=== PATIENT | male | born 1950 | race Caucasian/White ===

== ENCOUNTER 2017-04-09 16:01 | Emergency (ER) | payer BC, OTHER ==
[~2017-04-09] VITALS: Ht 170.2 cm; Wt 76.0 kg
[~2017-04-09 16:01] MED LIST: ASPI81TA28 PO; ATOR10TA88 PO; LISI-461 PO; MULT-220 PO; NEOMYCIN PO; NRV5 PO; ONDA4TAB4 PO; OXYC1TAB3 PO
[2017-04-09 16:05] VITALS: TEMP 36.8; Ht 170.2 cm; Wt 76.0 kg
[2017-04-09] MEDS ORDERED: XYLOCAINE 1%/SOD BICARB 20 ML VIAL INFIL ONE (16:06)
--- NOTE | 2017-04-09 16:13 | EMERGENCY ROOM VISIT NOTE ---
History Report prepared by Giovanny: Santhosh Clay Under the Supervision of: Dr. Carlo Beltran M.D. First contact with patient: 16:04 Chief Complaint: LACERATION/CUT (SUT/DERMABOND) Stated Complaint: CUT ON LEFT ARM History of Present Illness The patient is a 66 year old male who presents to the Emergency Room with complaints of a sudden laceration on his left arm occurring prior to arrival. The patient states that he was unloading stuff, and some broken glass cut him. The patient states that he is currently on aspirin, and he states that he is up to date with his tetanus shot. Source of History: patient Onset: prior to arrival Position: arm (left) Quality: other (laceration) Timing: other (sudden) Review of Systems See HPI for pertinent positives & negatives. A total of 6 systems reviewed and were otherwise negative. Family History Heart disease Social History Smoking Status: Never Smoker Drug Use: none Marital Status: Housing Status: lives with family Occupation Status: unemployed Current/Historical Medications Scheduled Aspirin (Aspirin Ec), 81 MG PO HS Atorvastatin (Lipitor), 10 MG PO HS Lisinopril (Lisinopril), 5 MG PO HS Multiple Vitamins W/ Minerals (Multi For Him), 1 TAB PO HS Allergies Coded Allergies: No Known Allergies (Unverified , 04/09/17) Physical Exam Vital Signs Date Time Temp Pulse Resp B/P (MAP) Pulse Ox O2 Delivery O2 Flow Rate FiO2 04/09/17 17:00 72 20 137/76 99 04/09/17 16:05 36.8 122 18 169/85 96 Room Air Physical Exam GENERAL: Patient is well appearing and in no acute distress. HEENT: No acute trauma, normocephalic atraumatic, mucous membranes moist, no nasal congestion, no scleral icterus. NECK: No stridor, no adenopathy, no meningismus, trachea is midline. LUNGS: No dyspnea. Clear to auscultation and equal bilaterally. No wheeze, no rhonchi. HEART: Regular rate and rhythm. No murmurs, rubs, gallops appreciated. EXTREMITIES: 3cm laceration over the distal left ulnar forearm deep to muscle. Initial evaluation had no evidence of vascular nor nerve injury. Full range of motion and strength in all digits of the left hand with excellent capillary refill. Normal sensation. Normal motion all extremities, no cyanosis, no edema. NEUROLOGIC: Alert and oriented, no acute motor or sensory deficits, no focal weakness, cranial nerves grossly intact. SKIN: No rash, no jaundice, no diaphoresis. Medical Decision & Procedures ER Provider Diagnostic Interpretation: Radiology results and stated below per my review and radiologist interpretation: LEFT FOREARM 2 VIEWS ROUTINE CLINICAL HISTORY: left forearm laceration on glass trauma COMPARISON: None. DISCUSSION: The bones and joint spaces appear intact. There is no evidence of fracture, dislocation or bony disease. Mild nonspecific soft tissue edema. IMPRESSION: No acute bony abnormality. Mild soft tissue edematous change The above report was generated using voice recognition software. It may contain grammatical, syntax or spelling errors. Electronically signed by: Margarito Daily M.D. 04/09/2017 4:24 PM Dictated Date/Time: 04/09/2017 4:23 PM ED Course 1604: The patient was evaluated in room B1. A complete history and physical exam was performed. 1606: Buffered Lidocaine 1% Inj 20ml INFIL 1700: Reevaluated the patient. Discussed results and discharge instructions: He verbalized understanding and agreement. He is going to follow up with his PCP on 04/20. The patient is ready for discharge. Medical Decision Pleasant 66 yr old male who cut left forearm on glass. Xray without foreign body. No evidence of arterial nor nerve compromise and he has excellent strength in hand. Tetanus UTD per him and . Sutured by Justen AKERS. Patient feeling well in no distress. Clearly fair amount of blood loss though vitals good once calmed down and he is without lightheadedness nor issues with orthostatic symptoms. PCP appointment next week. Medication Reconcilliation Current Medication List: was personally reviewed by me Blood Pressure Screening Patient's blood pressure: Elevated blood pressure Blood pressure disposition: Elevated BP felt to be situational I did discuss his BP elevation though likely situation with him and that follow up appt on reasonable time to have this rechecked. Impression Primary Impression: Laceration of left forearm Scribe Attestation The scribe's documentation has been prepared under my direction and personally reviewed by me in its entirety. I confirm that the note above accurately reflects all work, treatment, procedures, and medical decision making performed by me. Departure Information Dispostion Home / Self-Care Referrals Andrey Merino M.D. (PCP) Forms HOME CARE DOCUMENTATION FORM, IMPORTANT VISIT INFORMATION Patient Instructions My [facility] Additional Instructions Keep wound clean and dry. Do not allow any crusting or dried blood to accumulate on sutures. If this occurs, use a 1:1 solution of hydrogen peroxide/ water on a Q-tip to clean the wound. Use an antibiotic ointment for 3-4 days, then let wound dry. Suture removal in 12-14 days. Return sooner for any signs of infection (increasing redness, swelling, drainage). Ice and elevate for swelling and pain. Tylenol 1000 mg every 6 hrs as needed for pain. If bleeding soaks through the dressing, suggest applying an Peng wrap for additional pressure. Return to the emergency department for persistent bleeding through the dressing.
--- NOTE | 2017-04-09 16:25 | DIAGNOSTIC IMAGING REPORT ---
LEFT FOREARM 2 VIEWS ROUTINE CLINICAL HISTORY: left forearm laceration on glass trauma COMPARISON: None. DISCUSSION: The bones and joint spaces appear intact. There is no evidence of fracture, dislocation or bony disease. Mild nonspecific soft tissue edema. IMPRESSION: No acute bony abnormality. Mild soft tissue edematous change The above report was generated using voice recognition software. It may contain grammatical, syntax or spelling errors. Electronically signed by: Margarito Daily M.D. 04/09/2017 4:24 PM Dictated Date/Time: 04/09/2017 4:23 PM
[2017-04-09] MEDS ORDERED: LSN5 PO (16:41)
--- NOTE | 2017-04-09 16:54 | EMERGENCY ROOM VISIT NOTE ---
ED Visit Note 66-year-old male who I was asked by Dr. Beltran, ED attending physician, to perform a left forearm laceration repair. The [place], and had significant bleeding from the wound. Please see Dr. Beltran's dictation for further treatment and final disposition. PROCEDURE NOTE: Examination of the left volar and ulnar forearm region shows an actively bleeding 2.5 cm laceration. The patient provided verbal consent for laceration repair under local anesthesia. Using buffered 1% lidocaine without epinephrine, good local anesthesia was administered. Sterile field was likely created. Several venous lacerations were noted with significant bleeding from the wound. Using 4-0 Vicryl simple interrupted sutures 4, good hemostasis was achieved. The wound was then thoroughly irrigated with normal saline. Exploration of the wound does not show any additional glass debris or other foreign bodies. The wound itself is actually rather shallow, and does not extend into the underlying subcutaneous space. The wound was then approximated using 4-0 nylon simple interrupted sutures. A bacitracin dressing was applied.
[2017-04-09 17:00] VITALS: BP 137/76; PULSE 72; O2SAT 99
== END 2017-04-09 17:00 | disposition home or self-care (01) ==
LOC: C.EDB 16:02
DX: S51.812A Laceration without foreign body of left forearm, initial encounter (principal); W25.XXXA Contact with sharp glass, initial encounter; Z82.49 Family history of ischemic heart disease and other diseases of the circulatory system

== ENCOUNTER 2017-08-07 02:50 | Emergency (ER) | payer BC ==
[~2017-08-07] VITALS: Ht 167.6 cm; Wt 75.9 kg
[~2017-08-07 02:50] MED LIST changes: +ATOR10TA82 PO; -ATOR10TA88 PO; -LISI-461 PO; +LSN5 PO; -NEOMYCIN PO; -NRV5 PO; -ONDA4TAB4 PO; -OXYC1TAB3 PO
[2017-08-07 02:59] VITALS: TEMP 36.5; Ht 167.6 cm; Wt 75.9 kg
[2017-08-07] MEDS ORDERED: KETOROLAC TROMETHAMINE 30 MG/ML VIAL IV STA (03:44)
[2017-08-07] MEDS ORDERED: ASPI1TAB48 PO (03:50)
[2017-08-07 04:12] LABS: BASO % 0.1 %; BASO ABS # 0.01 K/uL (0-0.2); COMPLETE YES; EOS % 0.1 %; HEMATOCRIT 44.3 % (42-52); IG% 0.1 %; LYMPH % 23.3 %; LYMPH ABS # 1.62 K/uL (1.2-3.4); MEAN CELL VOLUME 91.7 fL (80-100); MEAN CORPUSCULAR HEMOGLOBIN 31.3 pg (25-34); MEAN CORPUSCULAR HGB CONC 34.1 g/dl (32-36); MEAN PLATELET VOLUME 9.5 fL (7.4-10.4); MONO % 7.5 %; NEUT % 68.9 %; PLATELET COUNT 153 K/uL (130-400); RED BLOOD COUNT 4.83 M/uL (4.7-6.1); WHITE BLOOD COUNT 6.95 K/uL (4.8-10.8)
[2017-08-07 04:18] LABS: INR 0.9 (0.9-1.1); PROTHROMBIN TIME (PATIENT) 10.1 SECONDS (9.0-12.0)
[2017-08-07 04:30] LABS: ALT/SGPT 36 U/L (12-78); AST/SGOT 26 U/L (15-37); BLOOD UREA NITROGEN 16 mg/dl (7-18); BUN/CREATININE RATIO 14.5 (10-20); CALCIUM 8.2 mg/dl (8.5-10.1); CARBON DIOXIDE 24 mmol/L (21-32); CHLORIDE 106 mmol/L (98-107); CREATININE 1.13 mg/dl (0.60-1.40); GLUCOSE 99 mg/dl (70-99); MAGNESIUM 2.2 mg/dl (1.8-2.4); POTASSIUM 3.7 mmol/L (3.5-5.1); SODIUM 137 mmol/L (136-145)
[2017-08-07 04:35] LABS: ALKALINE PHOSPHATASE 99 U/L (45-117)
--- NOTE | 2017-08-07 05:14 | EMERGENCY ROOM VISIT NOTE ---
History Report prepared by Giovanny: Anabella Shankar Under the Supervision of: Dr. Yumiko Howard D.O. First contact with patient: 03:21 Chief Complaint: CHEST PAIN Stated Complaint: CHEST PAIN, SWEATS, BODY FEELS SORE Nursing Triage Summary: see triage note . History of Present Illness The patient is a 66 year old male who presents to the Emergency Room with complaints of intermittent chest pain starting 1 week ago. He describes the pain as sore. The pain lasts for a few seconds at a time and happens mostly when he is lying down. The pain is not very severe. It has happened around 5 times. He is also having aching in his shoulders and arms. This does not change with movement. He notes that he did move some plastic tables and chairs, but does not think that this is related. He is having difficulty sleeping because of the shoulder pain, especially tonight. He had tried taking Tylenol which helped slightly. Tonight he had some diaphoresis which resolved. He reports some SOB and a small amount of soreness in his legs. No change in any symptoms with exertion, exertion does not bring out chest pain. He has been feeling lightheaded when standing up, lasts only couple seconds and then resolves. He denies any fever, nausea, vomiting, cough, cold symptoms, abdominal pain, change in bowel movements, urinary symptoms, or leg swelling. He denies any history of heart problems. His father passed at age 50 from a heart attack. His mother also had a history of heart attack. He has a history of kidney stones, but no history of kidney failure. He notes that his grandchildren have had colds recently. Source of History: patient Onset: 1 week ago Position: chest Quality: other (soreness) Timing: intermittent Associated Symptoms: + diaphoresis, + SOB, No fevers, No cough, No nausea, No vomiting, No abdominal pain, No urinary symptoms Note: Pt reports shoulder and arm aching, lightheadedness. Pt denies change in bowel movement, leg swelling. Review of Systems See HPI for pertinent positives & negatives. A total of 10 systems reviewed and were otherwise negative. Past Medical & Surgical Medical Problems: (1) Hypertension Family History Heart disease Social History Smoking Status: Never Smoker Drug Use: none Marital Status: Housing Status: lives with family Occupation Status: retired Current/Historical Medications Scheduled Aspirin (Aspirin Low Dose), 81 MG PO DAILY Atorvastatin (Lipitor), 10 MG PO HS Lisinopril (Lisinopril), 10 MG PO HS Multiple Vitamins W/ Minerals (Multi For Him), 1 TAB PO HS Allergies Coded Allergies: No Known Allergies (Unverified , 08/07/17) Physical Exam Vital Signs Date Time Temp Pulse Resp B/P (MAP) Pulse Ox O2 Delivery O2 Flow Rate FiO2 08/07/17 05:23 70 18 140/88 95 08/07/17 04:24 66 20 138/92 96 Room Air 08/07/17 03:15 71 08/07/17 03:14 98 Room Air 08/07/17 03:14 70 08/07/17 02:59 36.5 76 20 153/100 96 Room Air Physical Exam GENERAL: alert, well appearing, well nourished, no distress, non-toxic EYE EXAM: normal conjunctiva, PERRL and EOM's grossly intact OROPHARYNX: no exudate, no erythema, lips, buccal mucosa, and tongue normal and mucous membranes are moist NECK: supple, no nuchal rigidity, no adenopathy, non-tender CHEST: No reproducible chest wall tenderness. LUNGS: Clear to auscultation. Normal chest wall mechanics HEART: no murmurs, S1 normal and S2 normal ABDOMEN: abdomen soft, non-tender, normo-active bowel sounds, no masses, no rebound or guarding. BACK: Back is symmetrical on inspection and there is no deformity, no midline tenderness, no CVA tenderness. SKIN: no rashes and no bruising UPPER EXTREMITIES: Reproducible tenderness to the bilateral proximal upper extremities. No deformity. Full ROM. Normal sensory. LOWER EXTREMITIES: No pitting edema. NEURO EXAM: Normal sensorium, cranial nerves II-XII grossly intact, normal speech, no gross weakness of arms, no gross weakness of legs. Medical Decision & Procedures ER Provider Diagnostic Interpretation: X-ray: I interpreted the following studies. Chest: A two view study of the chest was reviewed and was negative for cardiomegaly, focal infiltrate, effusion , or wide mediastinum. Laboratory Results 08/07/17 03:10 Red Blood Count 4.83, Mean Corpuscular Volume 91.7, Mean Corpuscular Hemoglobin 31.3, Mean Corpuscular Hemoglobin Concent 34.1, Mean Platelet Volume 9.5, Neutrophils (%) (Auto) 68.9, Lymphocytes (%) (Auto) 23.3, Monocytes (%) (Auto) 7.5, Eosinophils (%) (Auto) 0.1, Basophils (%) (Auto) 0.1, Neutrophils # (Auto) 4.78, Lymphocytes # (Auto) 1.62, Monocytes # (Auto) 0.52, Eosinophils # (Auto) 0.01, Basophils # (Auto) 0.01 08/07/17 03:10 Test 08/07/17 03:10 White Blood Count 6.95 K/uL (4.8-10.8) Red Blood Count 4.83 M/uL (4.7-6.1) Hemoglobin 15.1 g/dL (14.0-18.0) Hematocrit 44.3 % (42-52) Mean Corpuscular Volume 91.7 fL (80-100) Mean Corpuscular Hemoglobin 31.3 pg (25-34) Mean Corpuscular Hemoglobin Concent 34.1 g/dl (32-36) Platelet Count 153 K/uL (130-400) Mean Platelet Volume 9.5 fL (7.4-10.4) Neutrophils (%) (Auto) 68.9 % Lymphocytes (%) (Auto) 23.3 % Monocytes (%) (Auto) 7.5 % Eosinophils (%) (Auto) 0.1 % Basophils (%) (Auto) 0.1 % Neutrophils # (Auto) 4.78 K/uL (1.4-6.5) Lymphocytes # (Auto) 1.62 K/uL (1.2-3.4) Monocytes # (Auto) 0.52 K/uL (0.11-0.59) Eosinophils # (Auto) 0.01 K/uL (0-0.5) Basophils # (Auto) 0.01 K/uL (0-0.2) RDW Standard Deviation 43.3 fL (36.4-46.3) RDW Coefficient of Variation 12.9 % (11.5-14.5) Immature Granulocyte % (Auto) 0.1 % Immature Granulocyte # (Auto) 0.01 K/uL (0.00-0.02) Prothrombin Time 10.1 SECONDS (9.0-12.0) Prothromb Time International Ratio 0.9 (0.9-1.1) D-Dimer 240 ug/L FEU (0-500) Anion Gap 7.0 mmol/L (3-11) Est Creatinine Clear Calc Drug Dose 56.4 ml/min Estimated GFR () 77.0 Estimated GFR (Non- 66.4 BUN/Creatinine Ratio 14.5 (10-20) Calcium Level 8.2 mg/dl (8.5-10.1) Magnesium Level 2.2 mg/dl (1.8-2.4) Total Bilirubin 0.6 mg/dl (0.2-1) Aspartate Amino Transf (AST/SGOT) 26 U/L (15-37) Alanine Aminotransferase (ALT/SGPT) 36 U/L (12-78) Alkaline Phosphatase 99 U/L (45-117) Troponin I < 0.015 ng/ml (0-0.045) Pro-B-Type Natriuretic Peptide 24 pg/ml (0-900) Total Protein 7.3 gm/dl (6.4-8.2) Albumin 3.7 gm/dl (3.4-5.0) Globulin 3.6 gm/dl (2.5-4.0) Albumin/Globulin Ratio 1.0 (0.9-2) Laboratory results per my review. Medications Administered Medications (Trade) Dose Ordered Sig/Devaughn Route Start Time Stop Time Status Last Admin Dose Admin Ketorolac Tromethamine (Toradol Inj) 15 mg NOW STAT IV 08/07/17 03:44 08/07/17 03:46 DC 08/07/17 03:53 15 MG ECG Indication: chest pain Rate (beats per minute): 73 Rhythm: sinus rhythm Findings: no acute ischemic change, no ectopy, other (normal axis, normal intervals) ED Course 0323: The patient was evaluated in room A2. A complete history and physical exam was performed. 0344: Toradol Inj 15 mg IV. 0457: Upon reevaluation, the patient is feeling better after Toradol. I discussed the findings and the treatment plan with the patient. He will follow up with his PCP and I discussed a possible cardiology evaluation. He verbalizes agreement and understanding. He was discharged home. Medical Decision Differential diagnoses includes but is not limited to acute coronary syndrome, myocardial infarction, pericarditis, pulmonary embolus, aortic dissection, pneumonia, pneumothorax, musculoskeletal, shingles, esophageal. Patient well-appearing here despite complaints, vital signs stable. Patient with bilateral proximal upper extremity pain reproducible with palpation, no bony tenderness/deformity/effusions. No chest pain or trouble breathing during my evaluation and during stay in the emergency room. Labs and imaging reassuring. Unclear if very brief episodes of intermittent chest pain related to upper externally findings. I do not suspect dissection. Patient with no paresthesias or weakness. Discussed with patient acidity in diet and reflux, possible patient with component of reflux and esophageal spasm. Patient's pain improved with Toradol. Labs and imaging reassuring. Given and written chest pain for greater than 1 day and negative troponin as well as very atypical, do not suspect ACS. Heart score 3. Discussed with patient follow-up with family doctor in possible need for cardiology evaluation as a precaution given that there is a family history of coronary artery disease. Patient's EKG here reassuring. Chest with patient symptoms to watch and return for, limiting heavy lifting and stiffness activity until he is feeling better, he was agreeable. Patient has been exposed to sick contacts and grandchildren recently , discussed with him chills tonight may be first indication of evolving illness. Discussed close monitoring. Discussed also could be related to pain or anxiety. No evidence of infectious etiology here tonight. Patient verbalized understanding of all results, possible differential diagnosis, need for close follow-up, was agreeable with plan. Medication Reconcilliation Current Medication List: was personally reviewed by me Blood Pressure Screening Patient's blood pressure: Elevated blood pressure Blood pressure disposition: Elevated BP felt to be situational Impression Primary Impression: Shoulder pain, bilateral Additional Impression: Chest pain Scribe Attestation The scribe's documentation has been prepared under my direction and personally reviewed by me in its entirety. I confirm that the note above accurately reflects all work, treatment, procedures, and medical decision making performed by me. Departure Information Dispostion Home / Self-Care Referrals Andrey Merino M.D. (PCP) Patient Instructions My [facility] Additional Instructions Please call and follow-up with your family doctor next week. Please continue regular medications as prescribed. Please avoid any heavy lifting or strenuous activity until your shoulders or feeling better. Please avoid any acidic foods that could contribute to increased reflux or heartburn. Please discuss with her family doctor and cardiology evaluation given your family history and personal risk factors. If you have any worsening shoulder arm pain, develop weakness, numbness or tingling, have more frequent or more severe chest pain, develop trouble breathing, vomiting, dizziness, pain into your back, or you've any other new concerns, please return the emergency room. Problem Qualifiers Primary Impression: Shoulder pain, bilateral Chronicity: acute Qualified Codes: M25.511 - Pain in right shoulder; M25.512 - Pain in left shoulder Additional Impression: Chest pain Chest pain type: unspecified Qualified Codes: R07.9 - Chest pain, unspecified
[2017-08-07 05:23] VITALS: BP 140/88; PULSE 70; O2SAT 95
--- NOTE | 2017-08-07 08:33 | DIAGNOSTIC IMAGING REPORT ---
CHEST ONE VIEW PORTABLE CLINICAL HISTORY: Chest pain. COMPARISON STUDY: No previous studies for comparison. FINDINGS: Lung volumes are normal. Lungs are clear. No pneumothorax or pleural effusion is present. Pulmonary vascularity is normal. Cardiomediastinal silhouette is normal. IMPRESSION: No acute cardiopulmonary findings. Electronically signed by: Steve Massey M.D. 08/07/2017 8:31 AM Dictated Date/Time: 08/07/2017 8:31 AM
== END 2017-08-07 05:23 | disposition home or self-care (01) ==
LOC: C.EDB 02:51 → C.EDA 05:23
DX: M25.511 Pain in right shoulder (principal); M25.512 Pain in left shoulder; R07.9 Chest pain, unspecified; R42 Dizziness and giddiness; I10 Essential (primary) hypertension; Z87.442 Personal history of urinary calculi; Z82.49 Family history of ischemic heart disease and other diseases of the circulatory system; Z79.82 Long term (current) use of aspirin; Z79.899 Other long term (current) drug therapy

== ENCOUNTER → 2017-09-14 | Outpatient (CLI) | payer BC ==
[~2017-09-14] MED LIST changes: +ASPI1TAB48 PO; -ASPI81TA28 PO; +LISI-730 PO; -LSN5 PO; +MECL1TAB42 PO; +ONDA4TAB10 SL
--- NOTE | 2017-09-14 10:49 | DIAGNOSTIC IMAGING REPORT ---
MRI OF THE RIGHT SHOULDER WITHOUT CONTRAST CLINICAL HISTORY: Acute right shoulder pain and weakness following lifting injury. COMPARISON STUDY: No previous studies for comparison. TECHNIQUE: Utilizing a 1.5 Shannan magnet and dedicated coil, multiplanar, multiecho imaging of the right shoulder was performed without intravenous or intra-articular contrast. FINDINGS: Alignment of the right shoulder is anatomic. There is moderate osteoarthritis of the right acromioclavicular joint with mild osteoarthritis of the right glenohumeral joint. The glenoid labrum is suboptimally assessed on this nonarthrogram exam. However, there is increased signal and decreased size of the posterior superior glenoid labrum consistent with a labral tear. The proximal long head of biceps tendon is medially subluxed and contains abnormal signal suggestive of a partial thickness tear or tendinopathy. There is increased signal within subscapularis which suggest tendinopathy with partial thickness interstitial tear within subscapularis. There is a full-thickness tear within the anterior fibers of distal supraspinatus with 1.7 cm of tendon retraction and mild muscular atrophy. There is tendinopathy within the remainder of supraspinatus. Note is made of tendinopathy of distal infraspinatus with partial thickness articular surface tears of distal infraspinatus. There is no full-thickness tear of infraspinatus. Teres minor is is intact. There is no right shoulder joint effusion. There is no marrow replacement. IMPRESSION: 1. Full-thickness tear of the anterior fibers of distal supraspinatus with 1.7 cm of tendon retraction and mild muscular atrophy. 2. Tendinopathy with partial-thickness articular surface tear of infraspinatus. Suspected tendinopathy with partial-thickness tear of subscapularis. 3. Posterior superior glenoid labral tear. 4. Partial-thickness tear within proximal long head of biceps tendon which is medially subluxed. 5. Moderate osteoarthritis of the right acromioclavicular joint. Electronically signed by: Steve Massey M.D. 09/14/2017 10:48 AM Dictated Date/Time: 09/14/2017 10:41 AM
== END | disposition home or self-care (01) ==
LOC: C.MRI 09:38
PROVIDERS: ATTEND Family Medicine
DX: M25.511 Pain in right shoulder (principal)

== ENCOUNTER 2017-12-04 07:56 | Emergency (ER) | payer BC ==
[~2017-12-04] VITALS: Ht 167.6 cm; Wt 75.0 kg
[~2017-12-04 07:56] MED LIST changes: -LISI-730 PO; +LSN5 PO; -MECL1TAB42 PO; -ONDA4TAB10 SL
[2017-12-04 08:06] VITALS: TEMP 36.5; Ht 167.6 cm; Wt 75.0 kg
[2017-12-04] MEDS ORDERED: ONDANSETRON 8 MG/54 ML D5W IV STA (08:11)
[2017-12-04] MEDS ORDERED: MECLIZINE HCL 25 MG TAB PO STA (08:11)
[2017-12-04] MEDS ORDERED: SODIUM CHLORIDE 0.9% 1000ML 1,000 ML IV STA (08:11)
[2017-12-04 08:19] LABS: BASO % 0.2 %; BASO ABS # 0.01 K/uL (0-0.2); EOS % 0.4 %; EOS ABS # 0.02 K/uL (0-0.5); HEMATOCRIT 41.9 % (42-52); HEMOGLOBIN 14.9 g/dL (14.0-18.0); IG# 0.02 K/uL (0.00-0.02); LYMPH % 30.8 %; LYMPH ABS # 1.73 K/uL (1.2-3.4); MEAN CELL VOLUME 91.7 fL (80-100); MEAN CORPUSCULAR HEMOGLOBIN 32.6 pg (25-34); MEAN CORPUSCULAR HGB CONC 35.6 g/dl (32-36); MEAN PLATELET VOLUME 9.3 fL (7.4-10.4); MONO ABS # 0.28 K/uL (0.11-0.59); NEUT % 63.2 %; NEUT ABS # 3.55 K/uL (1.4-6.5); PLATELET COUNT 136 K/uL (130-400); RED CELL DISTRIBUTION WIDTH CV 12.9 % (11.5-14.5); RED CELL DISTRIBUTION WIDTH SD 43.2 fL (36.4-46.3); WHITE BLOOD COUNT 5.61 K/uL (4.8-10.8)
--- NOTE | 2017-12-04 08:25 | DIAGNOSTIC IMAGING REPORT ---
CHEST ONE VIEW PORTABLE CLINICAL HISTORY: EVALUATE ALTERED MENTAL STATUS/WEAKNESS dyspnea COMPARISON STUDY: 08/07/2017 FINDINGS: The bones soft tissues and hemidiaphragms are normal. The cardiomediastinal silhouette is normal. The lungs are clear. The pulmonary vasculature is normal. IMPRESSION: Negative chest. The above report was generated using voice recognition software. It may contain grammatical, syntax or spelling errors. Electronically signed by: Margarito Daily M.D. 12/04/2017 8:23 AM Dictated Date/Time: 12/04/2017 8:23 AM
[2017-12-04 08:27] LABS: PTT PATIENT 22.1 SECONDS (21.0-31.0)
[2017-12-04 08:49] LABS: ALBUMIN 3.6 gm/dl (3.4-5.0); ALKALINE PHOSPHATASE 111 U/L (45-117); ALT/SGPT 52 U/L (12-78); AST/SGOT 34 U/L (15-37); BLOOD UREA NITROGEN 18 mg/dl (7-18); CALCIUM 8.6 mg/dl (8.5-10.1); CARBON DIOXIDE 25 mmol/L (21-32); CKMB 1.5 ng/ml (0.5-3.6); CREATININE 1.22 mg/dl (0.60-1.40); GLUCOSE 106 mg/dl (70-99); LIPASE 185 U/L (73-393); POTASSIUM 3.8 mmol/L (3.5-5.1); SODIUM 142 mmol/L (136-145); TOTAL PROTEIN 7.4 gm/dl (6.4-8.2)
--- NOTE | 2017-12-04 08:53 | DIAGNOSTIC IMAGING REPORT ---
HEAD WITHOUT CONTRAST (CT) CT DOSE: 537.48 mGy.cm HISTORY: Mental status change EVALUATE ALTERED MENTAL STATUS/WEAKNESS TECHNIQUE: Multiaxial CT images of the head were performed without the use of intravenous contrast. A dose lowering technique was utilized adhering to the principles of ALARA. Comparison: None. Findings: The paranasal sinuses and mastoid air cells are clear. The calvarium and skull base are intact. The ventricles and sulci are within normal limits. There is no mass, hematoma, midline shift, or acute infarct. Impression: No acute intracranial abnormality. The above report was generated using voice recognition software. It may contain grammatical, syntax or spelling errors. Electronically signed by: Margairto Daily M.D. 12/04/2017 8:51 AM Dictated Date/Time: 12/04/2017 8:50 AM
[2017-12-04] MEDS ORDERED: LORAZEPAM 2 MG/ML 1 ML VIAL IV STA (09:17)
--- NOTE | 2017-12-04 10:14 | DIAGNOSTIC IMAGING REPORT ---
BRAIN WITHOUT CONTRAST HISTORY: VERTIGO TECHNIQUE: Multiplanar multisequence MRI of the brain was performed without the use of contrast. COMPARISON STUDY: None. FINDINGS: There are no areas of restricted diffusion to suggest acute infarction. The midline structures are intact. The paranasal sinuses are clear. The mastoid air cells are clear. The ventricles and sulci are within normal limits for age. There is no mass, hematoma, midline shift. The major vascular flow-voids at the skull base are well maintained. Several foci of increased signal within the periventricular regions consistent with chronic small vessel change of aging. Ventricular system is midline. Mild age-related atrophy over the cerebral convexities IMPRESSION: No acute intracranial abnormality. Mild chronic small vessel change. Mild cerebral atrophy. The above report was generated using voice recognition software. It may contain grammatical, syntax or spelling errors. Electronically signed by: Margarito Daily M.D. 12/04/2017 10:13 AM Dictated Date/Time: 12/04/2017 10:11 AM
[2017-12-04] MEDS ORDERED: ONDA4TAB10 SL (10:35)
[2017-12-04] MEDS ORDERED: MECL1TAB42 PO (10:35)
--- NOTE | 2017-12-04 10:36 | EMERGENCY ROOM VISIT NOTE ---
History Report prepared by Giovanny: Veto Vo Under the Supervision of: Justin BaezO. First contact with patient: 08:06 Chief Complaint: ILLNESS Stated Complaint: ILLNESS History of Present Illness The patient is a 67 year old male who presents to the Emergency Room with complaints of syncope that occurred prior to arrival. The patient states that after waking up, the patient's body hit the floor and his head hit the bed. Per his , the patient was diaphoretic. He states that he feels dizzy, and nauseous and that movement worsens his symptoms. He had a similar episode yesterday while he was at therapy for his shoulder (surgery for a torn rotator cuff). He had the flu recently and was recently evaluated at [facility]. He denies weakness in his legs or visual changes. He denies headaches. Source of History: patient, spouse/significant other Onset: [employer] Position: head, other (global) Timing: other (1 episode) Modifying Factors (Worsening): movement Associated Symptoms: + diaphoresis, + nausea, No headache Note: Patient complains of dizziness. He denies weakness in his legs or visual changes. Review of Systems See HPI for pertinent positives & negatives. A total of 10 systems reviewed and were otherwise negative. Past Medical & Surgical Medical Problems: (1) Hypertension Family History Heart disease Social History Smoking Status: Never Smoker Drug Use: none Marital Status: Housing Status: lives with family Occupation Status: retired Current/Historical Medications Scheduled Aspirin (Aspirin Low Dose), 81 MG PO DAILY Atorvastatin (Lipitor), 10 MG PO HS Lisinopril (Lisinopril), 10 MG PO HS Multiple Vitamins W/ Minerals (Multi For Him), 1 TAB PO HS Ondasetron Odt (Zofran Odt), 4 MG SL Q6H Scheduled PRN Meclizine Hcl (Meclizine Hcl), 1 TAB PO TID PRN for Dizziness or Vertigo Allergies Coded Allergies: No Known Allergies (Unverified , 08/07/17) Physical Exam Vital Signs Date Time Temp Pulse Resp B/P (MAP) Pulse Ox O2 Delivery O2 Flow Rate FiO2 12/04/17 09:22 79 16 148/91 95 Room Air 12/04/17 08:08 83 12/04/17 08:06 36.5 79 16 168/104 95 Room Air Physical Exam VITAL SIGNS: were reviewed as above. GENERAL:Non-toxic in appearance. SKIN: Warm dry and pink. HEAD: Normocephalic and atraumatic. OROPHARYNX: Is clear and moist NECK: Supple without lymphadenopathy or meningismus. LUNGS: clear. HEART: Regular rate and rhythm. ABDOMEN: Soft and nontender. EXTREMITIES: Warm and well perfused. NEUROLOGICALLY: Awake alert and oriented without focal deficit. Cranial nerves 2 -12 are intact. There is no pronator drift. Cerebellar testing is within normal limits. There is no nystagmus. There is no facial droop. Speech is clear. Vision is grossly normal. MUSCULOSKELETAL: Good muscle tone. No evidence of trauma. Medical Decision & Procedures ER Provider Diagnostic Interpretation: Radiology results as stated below per my review and radiologist interpretation: CHEST ONE VIEW PORTABLE CLINICAL HISTORY: EVALUATE ALTERED MENTAL STATUS/WEAKNESS dyspnea COMPARISON STUDY: 08/07/2017 FINDINGS: The bones soft tissues and hemidiaphragms are normal. The cardiomediastinal silhouette is normal. The lungs are clear. The pulmonary vasculature is normal. IMPRESSION: Negative chest. The above report was generated using voice recognition software. It may contain grammatical, syntax or spelling errors. Electronically signed by: Margarito Daily M.D. 12/04/2017 8:23 AM Dictated Date/Time: 12/04/2017 8:23 AM HEAD WITHOUT CONTRAST (CT) CT DOSE: 537.48 mGy.cm HISTORY: Mental status change EVALUATE ALTERED MENTAL STATUS/WEAKNESS TECHNIQUE: Multiaxial CT images of the head were performed without the use of intravenous contrast. A dose lowering technique was utilized adhering to the principles of ALARA. Comparison: None. Findings: The paranasal sinuses and mastoid air cells are clear. The calvarium and skull base are intact. The ventricles and sulci are within normal limits. There is no mass, hematoma, midline shift, or acute infarct. Impression: No acute intracranial abnormality. The above report was generated using voice recognition software. It may contain grammatical, syntax or spelling errors. Electronically signed by: Margarito Daily M.D. 12/04/2017 8:51 AM Dictated Date/Time: 12/04/2017 8:50 AM BRAIN WITHOUT CONTRAST HISTORY: VERTIGO TECHNIQUE: Multiplanar multisequence MRI of the brain was performed without the use of contrast. COMPARISON STUDY: None. FINDINGS: There are no areas of restricted diffusion to suggest acute infarction. The midline structures are intact. The paranasal sinuses are clear. The mastoid air cells are clear. The ventricles and sulci are within normal limits for age. There is no mass, hematoma, midline shift. The major vascular flow-voids at the skull base are well maintained. Several foci of increased signal within the periventricular regions consistent with chronic small vessel change of aging. Ventricular system is midline. Mild age-related atrophy over the cerebral convexities IMPRESSION: No acute intracranial abnormality. Mild chronic small vessel change. Mild cerebral atrophy. The above report was generated using voice recognition software. It may contain grammatical, syntax or spelling errors. Electronically signed by: Margarito Daily M.D. 12/04/2017 10:13 AM Dictated Date/Time: 12/04/2017 10:11 AM Laboratory Results 12/04/17 08:10 Red Blood Count 4.57, Mean Corpuscular Volume 91.7, Mean Corpuscular Hemoglobin 32.6, Mean Corpuscular Hemoglobin Concent 35.6, Mean Platelet Volume 9.3, Neutrophils (%) (Auto) 63.2, Lymphocytes (%) (Auto) 30.8, Monocytes (%) (Auto) 5.0, Eosinophils (%) (Auto) 0.4, Basophils (%) (Auto) 0.2, Neutrophils # (Auto) 3.55, Lymphocytes # (Auto) 1.73, Monocytes # (Auto) 0.28, Eosinophils # (Auto) 0.02, Basophils # (Auto) 0.01 12/04/17 08:10 Test 12/04/17 08:10 White Blood Count 5.61 K/uL (4.8-10.8) Red Blood Count 4.57 M/uL (4.7-6.1) Hemoglobin 14.9 g/dL (14.0-18.0) Hematocrit 41.9 % (42-52) Mean Corpuscular Volume 91.7 fL (80-100) Mean Corpuscular Hemoglobin 32.6 pg (25-34) Mean Corpuscular Hemoglobin Concent 35.6 g/dl (32-36) Platelet Count 136 K/uL (130-400) Mean Platelet Volume 9.3 fL (7.4-10.4) Neutrophils (%) (Auto) 63.2 % Lymphocytes (%) (Auto) 30.8 % Monocytes (%) (Auto) 5.0 % Eosinophils (%) (Auto) 0.4 % Basophils (%) (Auto) 0.2 % Neutrophils # (Auto) 3.55 K/uL (1.4-6.5) Lymphocytes # (Auto) 1.73 K/uL (1.2-3.4) Monocytes # (Auto) 0.28 K/uL (0.11-0.59) Eosinophils # (Auto) 0.02 K/uL (0-0.5) Basophils # (Auto) 0.01 K/uL (0-0.2) RDW Standard Deviation 43.2 fL (36.4-46.3) RDW Coefficient of Variation 12.9 % (11.5-14.5) Immature Granulocyte % (Auto) 0.4 % Immature Granulocyte # (Auto) 0.02 K/uL (0.00-0.02) Prothrombin Time 10.2 SECONDS (9.0-12.0) Prothromb Time International Ratio 1.0 (0.9-1.1) Activated Partial Thromboplast Time 22.1 SECONDS (21.0-31.0) Partial Thromboplastin Ratio 0.9 Anion Gap 6.0 mmol/L (3-11) Est Creatinine Clear Calc Drug Dose 51.5 ml/min Estimated GFR () 69.7 Estimated GFR (Non- 60.1 BUN/Creatinine Ratio 14.4 (10-20) Calcium Level 8.6 mg/dl (8.5-10.1) Magnesium Level 2.1 mg/dl (1.8-2.4) Total Bilirubin 0.6 mg/dl (0.2-1) Direct Bilirubin 0.2 mg/dl (0-0.2) Aspartate Amino Transf (AST/SGOT) 34 U/L (15-37) Alanine Aminotransferase (ALT/SGPT) 52 U/L (12-78) Alkaline Phosphatase 111 U/L (45-117) Total Creatine Kinase 58 U/L (39-308) Creatine Kinase MB 1.5 ng/ml (0.5-3.6) Creatine Kinase MB Ratio 2.6 (0-3.0) Troponin I < 0.015 ng/ml (0-0.045) Total Protein 7.4 gm/dl (6.4-8.2) Albumin 3.6 gm/dl (3.4-5.0) Lipase 185 U/L (73-393) Thyroid Stimulating Hormone (TSH) 2.740 uIu/ml (0.300-4.500) Chemistry Specimen Hemolysis Laboratory results as stated above per my review. Medications Administered Medications (Trade) Dose Ordered Sig/Devaughn Route Start Time Stop Time Status Last Admin Dose Admin Sodium Chloride 1,000 ml @ 250 mls/hr Q4H STAT IV 12/04/17 08:11 12/04/17 12:10 12/04/17 08:20 250 MLS/HR Meclizine HCl (Antivert Tab) 25 mg NOW STAT PO 12/04/17 08:11 12/04/17 08:14 DC 12/04/17 08:20 25 MG Ondansetron HCl (Zofran 8mg Iv) 8 mg NOW STAT IV 12/04/17 08:11 12/04/17 08:14 DC 12/04/17 08:34 8 MG Lorazepam (Ativan Inj) 1 mg NOW STAT IV 12/04/17 09:17 12/04/17 09:18 DC 12/04/17 09:23 1 MG ECG Per My Interpretation Indication: syncope Rate (beats per minute): 80 Rhythm: normal sinus Findings: no ectopy, other (No ST elevation or depression) ED Course 0806: Previous medical records were reviewed. The patient was evaluated in room B6. A complete history and physical examination was performed. 0811: Zofran 8 mg IV; Antivert Tab 25 mg PO; Sodium Chloride 1000 ml @ 250 mls/ hr IV. 0917: Ativan Inj 1 mg IV. 1035: On reevaluation, the patient is doing well. I discussed the results and findings with the patient. He verbalized agreement of the treatment plan. He was discharged home. Medical Decision Differential includes acute coronary syndrome, myocardial infarction, CVA, TIA, anemia, infection, pneumonia, UTI, pyelonephritis, poor nutrition, dehydration, electrolyte disturbance,hypoglycemia. This is a 67-year-old male who presents to the ED with a chief complaint of vertigo and vomiting. The patient states that he got out of bed this morning and had a near syncopal episode. He states that he collapsed briefly to the floor and hit his head on the bed. He did not completely pass out but felt as though he was going to. The patient states that after this he was able to get up and go to the bathroom and then lay down again. Since that time he has been having a sensation of the room spinning associated with nausea and vomiting. Denies any headaches. Denies any prior symptoms. He did report a little dizziness yesterday when he was at therapy for his shoulder. The patient's vital signs reveal some hypertension. Neurologic exam was completely normal. Cerebellar testing was normal. There was some limitation to the right arm related to his recent right shoulder. An EKG shows a normal sinus rhythm. CT scan of the brain did not show acute process. CBC and complete metabolic panel normal troponin was negative. MRI of the brain did not show acute process. The patient was told the results of the test. He was treated with Ativan IV, normal saline IV, meclizine as needed Zofran p.o. He is felt to be stable for discharge. Medication Reconcilliation Current Medication List: was personally reviewed by me Blood Pressure Screening Patient's blood pressure: Elevated blood pressure Blood pressure disposition: Elevated BP felt to be situational Impression Primary Impression: Vertigo Scribe Attestation The scribe's documentation has been prepared under my direction and personally reviewed by me in its entirety. I confirm that the note above accurately reflects all work, treatment, procedures, and medical decision making performed by me. Departure Information Dispostion Home / Self-Care Prescriptions Meclizine Hcl (MECLIZINE HCL) 25 Mg Tab 1 TAB PO TID Y for Dizziness or Vertigo for 10 Days, #30 TAB Prov: Kehinde Gross D.O. 12/04/17 Ondasetron Odt (ZOFRAN ODT) 4 Mg Tab 4 MG SL Q6H for Nausea, #20 TAB Prov: Kehinde Gross D.O. 12/04/17 Referrals Andrey Merino M.D. (PCP) Patient Instructions My [facility] Additional Instructions Meclizine as prescribed for dizziness/vertigo. Zofran: Allow one tablet to dissolve under the tongue every 6 hours as needed for nausea or vomiting. Follow-up with your doctor for further care and evaluation in 1-2 days. Return to the emergency department for worsening or new symptoms or any concerns. You have been examined and treated today on an emergency basis only. This is not a substitute for, or an effort to provide, complete comprehensive medical care. It is impossible to recognize and treat all injuries or illnesses in a single emergency department visit. It is therefore important that you follow up closely with your doctor. Call as soon as possible for an appointment.
[2017-12-04 11:10] VITALS: BP 152/100; PULSE 84; O2SAT 95
== END 2017-12-04 11:25 | disposition home or self-care (01) ==
LOC: EDBD 07:56 → C.EDB 07:57
DX: R42 Dizziness and giddiness (principal); I10 Essential (primary) hypertension; Z79.82 Long term (current) use of aspirin; Z79.899 Other long term (current) drug therapy